=== PATIENT | male | born 1950 | race Caucasian/White ===

== ENCOUNTER 2024-05-30 06:14 | Day surgery (SDC) | payer MEDICARE, OTHER, SELFPAY ==
[2024-05-06 14:04] VITALS: BMI 28.5
[2024-05-06 14:30] LABS: Hematocrit 40.4 % (39.0-52.0); Hemoglobin 13.5 g/dL (13.0-18.0); Mean Corp Hgb Conc. 33.4 g/dL (33.0-37.0); Mean Corpuscular Hgb 30.1 pg (27.0-31.0); Mean Platelet Volume 8.9 fL (7.4-10.4); Platelet Count 243 10^3/uL (130-400); Red Blood Cell Count 4.49 10^6/uL (4.70-6.10); Red Cell Dist. Width 13.2 % (11.5-14.5); White Blood Cell Count 6.5 10^3/uL (4.8-10.8)
[2024-05-06 14:54] LABS: ALT (SGPT) 19 U/L (0-50); AST (SGOT) 23 U/L (17-59); Albumin 4.6 g/dl (3.5-5.0); Alkaline Phosphatase 59 U/L (38-126); Blood Urea Nitrogen 17 mg/dl (9-20); Calcium 9.5 mg/dl (8.4-10.2); Carbon Dioxide 28 mmol/L (22-30); Chloride 100 mmol/L (98-107); Estimated Creatinine Clearance 77 ml/min; Glucose 184 mg/dl (70-99); Potassium 4.4 mmol/L (3.5-5.1); Sodium 137 mmol/L (135-145); Total Bilirubin 0.7 mg/dl (0.2-1.3); Total Protein 7.1 g/dl (6.3-8.2); eGFR > 60.00
[2024-05-07 12:31] LABS: Glycohemoglobin (HgbA1c) 7.4 % (4.0-5.6)
--- NOTE | 2024-05-09 13:01 | PTCARENOTE ---
Becky at Dr Portillo office emailed to have abnormal ECG addressed at PCP clearance.
--- NOTE | 2024-05-16 12:41 | VNURNOTE ---
Patient is scheduled for an elective R AMAN on 05/30/24- he is a same day patient with Dr Portillo. Spoke with patient prior to surgery. Introduced role of [facility] Liaison. Patient reports that he lives with his in a MULTI story converted barn.
There are 0 steps to enter and an elevator.
He has a cane. He needs a rolling walker and raised toilet seat. He has his Ortho pre-op appt on 05/17 and will ask for DME.
He had a L knee replacement years ago at [facility].
PCP is Dr Hua Kearns.
Discussed [facility] joint protocol and post surgical plans.
Reviewed that he will have [facility] services initially and will then start outpatient PT.
Patient selects [facility] for his home care needs and might go to '[facility]' for outpatient PT. Outpt PT TBD.
Patient is in agreement with plan and states that his and daughter will be home with him. Advised to bring RW with him day of surgery. [facility] referral placed in [facility].
Plan: [facility] per [facility] joint protocol on 05/30 then outpt PT TBD
[2024-05-24 10:47] VITALS: BMI 28.5
--- NOTE | 2024-05-24 11:02 | PTCARENOTE ---
Abn HgA1C of 7.4, Becky at Dr. Portillo office made aware.
[2024-05-30] VITALS (11 sets, daily range): BP systolic 128–162; BP diastolic 70–96; PULSE 87; O2SAT 98; BMI 28.5
[2024-05-30 07:35] LABS: Glucose - Point of Care 108 mg/dl (70-99)
[2024-05-30] MEDS: CELEBREX 200 MG PO (07:37)
[2024-05-30] MEDS: TYLENOL 650 MG PO (07:37)
[2024-05-30] MEDS: NORMOSOL-R/PLASMALYTE-A 1000 IV (07:38)
[2024-05-30 10:07] LABS: Glucose - Point of Care 181 mg/dl (70-99)
[2024-05-30] MEDS: TYLENOL 1000 MG PO (11:52)
[2024-05-30] MEDS: ANCEF 5 IV (12:21)
== END 2024-05-30 13:20 | disposition home health service (06) ==
LOC: SDS 06:14
PROVIDERS: ATTENDING PHYSICIAN Specialist; FAMILY PHYSICIAN Internal Medicine
DX: M16.11 Unilateral primary osteoarthritis, right hip (principal); M17.12 Unilateral primary osteoarthritis, left knee; E11.9 Type 2 diabetes mellitus without complications; Z98.890 Other specified postprocedural states
CPT/HCPCS: 27130; C1713; C1776; 36415; 73502; 80053; 82962; 83036; 85027; 87070; 93005; 97116; 97162